=== PATIENT | female | born 1975 | race African-American/Black ===

== ENCOUNTER 2017-04-21 17:43 | Inpatient (IN) | payer OTHER ==
[~2017-04-21] VITALS: Ht 175.3 cm; Wt 104.3 kg
[2017-04-21 18:33] LABS: ABSOLUTE BASOPHIL COUNT 0 /CUMM (0.0-0.2); ABSOLUTE EOSINOPHIL COUNT 0.1 /CUMM (0.0-0.7); ABSOLUTE GRANULOCYTE CT 6.2 /CUMM (1.4-6.5); ABSOLUTE LYMPH COUNT 2.6 /CUMM (1.2-3.4); ABSOLUTE MONOCYTE COUNT 0.4 /CUMM (0.10-0.60); BASOPHIL % 0.4 % (0.0-2.0); EOSINOPHIL % 1.1 % (0-5); HEMATOCRIT 34.5 % (37-47); MEAN CORPUSCULAR HGB 26.8 PG (27.0-31.0); MEAN CORPUSCULAR HGB CONC 32.5 G/DL (33.0-37.0); MEAN CORPUSCULAR VOLUME 82.3 FL (81.0-99.0); MEAN PLATELET VOLUME 8.5 FL (7.4-10.4); PLATELET COUNT 325 /CUMM (130-400); RBC DISTRIBUTION WIDTH 20.9 % (11.5-14.5); RED BLOOD CELL CT 4.19 /CUMM (4.20-5.40); WHITE BLOOD CELL COUNT 9.4 /CUMM (4.8-10.8)
--- NOTE | 2017-04-21 18:39 | RADIOLOGY REPORT ---
EXAMINATION: XR CHEST CLINICAL INFORMATION: 42-year-old woman with shortness of breath. COMPARISON: None TECHNIQUE: 2 views of the chest were obtained. FINDINGS: The lungs are well expanded and clear, without evidence of focal airspace consolidation or pulmonary edema. Heart size is within the range of normal. There are no pleural effusions. IMPRESSION: No radiographic evidence of an acute cardiopulmonary process.
--- NOTE | 2017-04-21 21:12 | CT SCAN REPORT ---
EXAMINATION: CT ANGIOGRAM OF THE CHEST WITH AND WITHOUT CONTRAST (CT PULMONARY ANGIOGRAM FOR PE) CLINICAL INFORMATION: 42-year-old woman with shortness of breath. COMPARISON: 04/21/2017 chest radiograph TECHNIQUE: Prior to contrast administration, noncontrast localization images were obtained. Subsequently, multidetector volumetric imaging was performed from the thoracic inlet to below the diaphragms following the administration of 95 mL Optiray 350 intravenous contrast. No contrast reaction reported. Sagittal, coronal, and MIP oblique sagittal reformatted images were obtained on the CT workstation, uploaded to PACS, and reviewed. Total exam dose-length product 556 mGy-cm. FINDINGS: QUALITY OF STUDY/CONTRAST BOLUS: Moderate to poor PULMONARY ARTERIES: Extensive lobar, segmental, and subsegmental pulmonary emboli are seen on both sides extending into the right upper, middle, and lower lobes, as well as into the left upper and lower lobes. THORACIC AORTA: No aneurysm or dissection. LUNG: No focal consolidation, nodules or masses. PLEURA: No pleural effusion or pneumothorax. MEDIASTINUM: Normal heart size. No pericardial effusion. No hilar or mediastinal lymphadenopathy. No evidence of septal bowing or right heart strain. CHEST WALL/AXILLA: No axillary or internal mammary lymphadenopathy. OSSEOUS STRUCTURES: No acute or suspicious osseous abnormality. UPPER ABDOMEN: There is diffuse fatty infiltration of the liver. No reflux of contrast into the hepatic veins to suggest elevated right heart pressures. IMPRESSION: Extensive pulmonary emboli are seen throughout both lungs in lobar, segmental, and subsegmental pulmonary artery branches. Findings were discussed with Dr. Vásquez at 9:10 pm.
--- NOTE | 2017-04-21 21:22 | ED DYSPNEA/ASTHMA COMPLAINT ---
History of Present Illness General Chief Complaint: Dyspnea (COPD, CHF, Other) Stated Complaint: SOB Source: patient Exam Limitations: no limitations Vital Signs & Intake/Output Vital Signs & Intake/Output Vital Signs Date Time Temp Pulse Resp B/P B/P Pulse O2 O2 Flow FiO2 Mean Ox Delivery Rate 04/22 0415 98.5 81 18 137/65 98 Room Air 04/22 0052 72 18 131/64 97 Room Air 04/21 2144 98.0 87 20 158/91 98 Room Air 04/21 2142 98 Room Air 04/21 1758 98.8 86 18 150/98 98 Room Air ED Intake and Output 04/22 0000 04/21 1200 Intake Total Output Total Balance Patient 230 lb Weight Weight Reported by Patient Measurement Method Allergies Coded Allergies: No Known Allergies (04/21/17) Triage Note: 42 YO FEMALE TO [facility] FOR EVAL OF SOB. PT STATES SHE HAD A HYSTERECTOMY ON 04/01. STATES SHE FEELS OUT OF BREATH NOW. DENIES PAIN. RA SATS 98%. HR 86 Triage Nurses Notes Reviewed? yes Onset: Gradual Duration: week(s): (1), constant, continues in ED Timing: single episode today Severity: mild, moderate Activities at Onset: none Prior Episodes/Possible Cause: no prior episodes Modifying Factors: Improves With: rest. Worsens With: movement. LMP (ages 10-50): unknown : No Patient currently breastfeeds: No HPI: 42-year-old female with no past medical history presents for evaluation of shortness of breath. Patient states that symptoms started about one week ago and been persistent. Symptoms are worse on exertion and improved at rest but still are present at rest. She states that on April 01 of this year she had a total abdominal hysterectomy related to very large uterine fibroids. No history of cancer. No previous blood clots. No chest pain hemoptysis lower extremity edema. She does not take any medications. No recent travel. (Rolando Pandey) Past History Travel History Traveled to [place] past 21 day No Medical History Any Pertinent Medical History? see below for history Neurological: NONE EENT: NONE Cardiovascular: NONE Respiratory: NONE Gastrointestinal: NONE Hepatic: NONE Renal: NONE Musculoskeletal: NONE Psychiatric: NONE Endocrine: NONE Blood Disorders: NONE Cancer(s): NONE VESSEL ENGINEER/Reproductive: bacterial vaginitis Surgical History Surgical History: non-contributory Psychosocial History What is your primary language Rw[place]an Tobacco Use: Never used Family History Hx Contributory? No (Rolando Pandey) Review of Systems Review of Systems Constitutional: Reports: no symptoms. EENTM: Reports: no symptoms. Respiratory: Reports: see HPI, short of breath. Cardiovascular: Reports: no symptoms. GI: Reports: no symptoms. Genitourinary: Reports: no symptoms. Musculoskeletal: Reports: no symptoms. Skin: Reports: no symptoms. Neurological/Psychological: Reports: no symptoms. Hematologic/Endocrine: Reports: no symptoms. Immunologic/Allergic: Reports: no symptoms. All Other Systems: Reviewed and Negative (Rolando Pandey) Physical Exam Physical Exam General Appearance: well developed/nourished, no apparent distress, alert, awake , obese Head: atraumatic, normal appearance Eyes: Bilateral: normal appearance, PERRL, EOMI. Ears, Nose, Throat: normal pharynx, normal ENT inspection, hearing grossly normal Neck: normal inspection, supple, full range of motion Respiratory: normal breath sounds, chest non-tender, no respiratory distress, lungs clear Cardiovascular: regular rate/rhythm, normal peripheral pulses Peripheral Pulses: 2+ radial (R), 2+ radial (L) Gastrointestinal: normal bowel sounds, soft, non-tender, no organomegaly Extremities: normal inspection, normal capillary refill, normal range of motion, no edema Neurologic/Psych: no motor/sensory deficits, awake, alert, oriented x 3, normal gait Skin: intact, normal color, warm/dry Lymphatic: no anterior cervical radames Core Measures ACS in differential dx? No CVA/TIA Diagnosis No Sepsis Present: No Sepsis Focused Exam Completed? No (Rolando Pandey) Progress Differential Diagnosis: asthma, AMI, bronchitis, costochondritis, CHF, COPD, pulmonary embolism, pneumonia, pneumothorax, unstable angina Plan of Care: Orders Procedure Date/time Status Nothing by Mouth 04/22 B Active TROPONIN LEVEL 04/22 1300 Active EKG 04/22 1300 Active CBC WITHOUT DIFFERENTIAL 04/22 0600 Complete BASIC ELECTROLYTES PLUS BUN&CR 04/22 0408 Complete TROPONIN LEVEL 04/22 0400 Complete PARTIAL THROMBOPLASTIN TIME 04/22 0400 Complete EKG 04/22 0400 Active Weight 04/22 0213 Active Vital Signs 04/22 212 Active Teach/Educate 04/22 212 Active Pain Treatment and Response 04/22 212 Active Nutritional Intake, Monitor 03/06 0213 Active Isolation 04/22 212 Active Intake & Output 04/22 212 Active Patient Care Conference 04/22 212 Active Activity/Ambulation 04/22 212 Active Patient Data 04/21 232 Active Saline Lock 04/21 2232 Active Misc Message 04/21 2232 Active ED Holding Orders 04/21 2232 Active Admit to inpatient 04/21 2232 Active Code Status 04/21 2232 Active Pathway - chart 04/21 2226 Active Intake & Output 04/21 214 Active Telemetry/Plant Reliability Engineer 04/21 2128 Active Add-on Test (ER Only) 04/21 210 Active PARTIAL THROMBOPLASTIN TIME 04/21 1803 Complete PROTHROMBIN TIME 04/21 1803 Complete URINALYSIS 04/21 1800 Active TROPONIN LEVEL 04/21 1800 Complete D-DIMER 04/21 1800 Complete COMPREHENSIVE METABOLIC PANEL 04/21 1800 Complete CBC WITHOUT DIFFERENTIAL 04/21 1800 Complete EKG 04/21 1800 Active US-EXT BILAT VENOUS DOPPLER 04/21 UNK Active TRC EVALUATION (GEN) 04/21 UNK Active House Staff 04/21 UNK Active Vital Signs 04/21 UNK Active ECHOCARDIOGRAM 04/21 UNK Active Current Medications Sig/Cynthia Start time Last Medication Dose Stop Time Status Admin Tramadol HCl 50 MG Q8P PRN 04/21 2345 AC (Ultram) Acetaminophen 650 MG Q8P PRN 04/21 2245 AC (Tylenol) Heparin Sodium 25,000 UNIT Q24H 04/21 2130 AC 04/21 (Porcine) 2210 (Heparin) Sodium Chloride 500 ML Laboratory Tests 04/22/17 0408: Anion Gap 11, Estimated GFR > 60, BUN/Creatinine Ratio 28.3 H, Troponin I < 0.01, APTT 60 H, CBC w Diff NO MAN DIFF REQ, RBC 4.20, MCV 82.7, MCH 26.4 L, MCHC 31.9 L, RDW 20.9 H, MPV 8.7, Gran % 51.9, Lymphocytes % 40.3, Monocytes % 5.4, Eosinophils % 1.9, Basophils % 0.5, Absolute Granulocytes 4.5, Absolute Lymphocytes 3.5 H, Absolute Monocytes 0.5, Absolute Eosinophils 0.2, Absolute Basophils 0 04/21/17 1803: Anion Gap 14, Estimated GFR > 60, BUN/Creatinine Ratio 25.6 H, Glucose 128 H, Calcium 9.9, Total Bilirubin 0.2, AST 56 H, ALT 47, Alkaline Phosphatase 99, Troponin I < 0.01, Total Protein 7.5, Albumin 4.4, Globulin 3.1, Albumin/ Globulin Ratio 1.4, PT 10.0, INR 0.92, APTT 28, D-Dimer High Sensitivty 1909 H, CBC w Diff NO MAN DIFF REQ, RBC 4.19 L, MCV 82.3, MCH 26.8 L, MCHC 32.5 L, RDW 20.9 H, MPV 8.5, Gran % 66.0, Lymphocytes % 28.0, Monocytes % 4.5, Eosinophils % 1.1, Basophils % 0.4, Absolute Granulocytes 6.2, Absolute Lymphocytes 2.6, Absolute Monocytes 0.4, Absolute Eosinophils 0.1, Absolute Basophils 0 Patient seen and evaluated. She had a total abdominal hysterectomy done last month. Her d-dimer is 1900. Currently she is stable. She is not tachycardic or hypoxic. Lung sounds are clear. Patient is CTA to rule out PE. EKG troponin negative. CTA is positive for lobar segmental and subsegmental PEs. No signs of right heart strain. Rectal exam negative for blood patient was heparinized. She'll be admitted to the hospital for further evaluation and treatment of a provoked PE. She will require monitoring of vital signs, IV heparin, pulmonology consult , medication adjustment serial labs. Case discussed with Dr. Martinez he agrees. Diagnostic Imaging: Viewed by Me: CT Scan. Discussed w/RAD: CT Scan. Radiology Impression: PATIENT: RMEA BASHIR PRESENT AGE: 42 PATIENT ACCOUNT NO: [id number] : 75 LOCATION: [facility] ORDERING PHYSICIAN: Rolando CALVERT SERVICE DATE: 04/21/17 EXAM TYPE: CAT - CTA CHEST-PULMONARY EMBOLISM EXAMINATION: CT ANGIOGRAM OF THE CHEST WITH AND WITHOUT CONTRAST (CT PULMONARY ANGIOGRAM FOR PE) CLINICAL INFORMATION: 42-year- old woman with shortness of breath. COMPARISON: 04/21/2017 chest radiograph TECHNIQUE: Prior to contrast administration, noncontrast localization images were obtained. Subsequently, multidetector volumetric imaging was performed from the thoracic inlet to below the diaphragms following the administration of 95 mL Optiray 350 intravenous contrast. No contrast reaction reported. Sagittal, coronal, and MIP oblique sagittal reformatted images were obtained on the CT workstation, uploaded to PACS, and reviewed. Total exam dose-length product 556 mGy-cm. FINDINGS: QUALITY OF STUDY/CONTRAST BOLUS: Moderate to poor PULMONARY ARTERIES: Extensive lobar, segmental, and subsegmental pulmonary emboli are seen on both sides extending into the right upper, middle, and lower lobes, as well as into the left upper and lower lobes. THORACIC AORTA: No aneurysm or dissection. LUNG: No focal consolidation, nodules or masses. PLEURA: No pleural effusion or pneumothorax. MEDIASTINUM: Normal heart size. No pericardial effusion. No hilar or mediastinal lymphadenopathy. No evidence of septal bowing or right heart strain. CHEST WALL/AXILLA: No axillary or internal mammary lymphadenopathy. OSSEOUS STRUCTURES: No acute or suspicious osseous abnormality. UPPER ABDOMEN: There is diffuse fatty infiltration of the liver. No reflux of contrast into the hepatic veins to suggest elevated right heart pressures. IMPRESSION: Extensive pulmonary emboli are seen throughout both lungs in lobar, segmental, and subsegmental pulmonary artery branches. Findings were discussed with Dr. Vásquez at 9:10 pm. DICTATED BY: Kellie Grande MD DATE/TIME DICTATED:2099 COURTROOM CLERK:MILAGROS DATE/TIME TRANSCRIBED:04/21/172099 CONFIDENTIAL, DO NOT COPY WITHOUT APPROPRIATE AUTHORIZATION. <Electronically signed in Other Vendor System> SIGNED BY: Kellie Grande MD 04/21/172111 Initial ED EKG: normal sinus rhythm, no ST T wave changes (Rolando Pandey) Departure Departure Disposition: STILL A PATIENT Condition: Stable Clinical Impression Primary Impression: Pulmonary embolus Qualifiers: Pulmonary embolism type: other Chronicity: acute Acute cor pulmonale presence: without acute cor pulmonale Qualified Code: I26.99 - Other pulmonary embolism without acute cor pulmonale Referrals: Derian Guerra MD (PCP/Family) Departure Forms: Customer Survey General Discharge Information Admission Note Spoke With: Giacomo Hatfield MD Documentation of Exam: Documentation of any treatments & extenuating circumstances including Concerns Regarding Discharge (functional status, medication knowledge or non-compliance, living conditions, etc.) that warrant an admission rather than observation: [IV heparin, serial labs, pulmonology consult, medication adjustment] (Rolando Pandey) PA/TRACK GREASER Co-Sign Statement Statement: ED Attending supervision documentation- [x] I saw and evaluated the patient. I have also reviewed all the pertinent lab results and diagnostic results. I agree with the findings and the plan of care as documented in the PA's/TRACK GREASER's documentation. 04/21/17, 22:10... pt with bilateral pulmonary embolus after hysterectomy... pt merits iv heparin, and then conversion to oral anticoagulants. [] I have reviewed the ED Record and agree with the PA's/TRACK GREASER's documentation. [] Additions or exceptions (if any) to the PAs/TRACK GREASER's note and plan are summarized below: [] (Michelle SANZ,Jatinder Arreaga) Critical Care Note Critical Care Note Critical Care Time: non-applicable (Rolando Pandey)
[2017-04-21 21:32] LABS: PTT 28 SEC (25-37)
--- NOTE | 2017-04-21 22:20 | History & Physical ---
Brittany Sagastume 04/21/17 2219: General Information and HPI MD Statement: I have seen and personally examined REMA BROWN and documented this H&P. The patient is a 42 year old F who presented with a patient stated chief complaint of acute onset of dyspnea Source of Information: patient Exam Limitations: no limitations History of Present Illness: Ms Brown is a 42 year old woman with no significant PMHx came in w/ a chief concern of dyspnea that started approximately one week prior to the presentation. She recently underwent hysterectomy 04/01/17 at [facility] ( indication fibroids ) with no operative or post op complications. She was relatively immobile for a week after surgery, and started ambulating minimally once every few hours. She reported exertional dyspnea that was noticed while she was doing daily chores, that progressed to dyspena at rest. She also complained of pain in her lower extremities, located in the calf regions bilaterally in the last 1 week. Currently pain-free. No CP, palpitations, lightheadedness. No ocp use, no smoking h/o, or personal or family h.o of cancers. No fever, cough, flu like symptoms. Allergies/Medications Allergies: Coded Allergies: No Known Allergies (04/21/17) Home Med list Apixaban (Eliquis) 5 MG TABLET 10 MG PO BID Blood thinner Please take 10mg twice a day until 04/28. Then take 5mg twice a day Past History Travel History Traveled to [place] past 21 day No Medical History Neurological: NONE EENT: NONE Cardiovascular: NONE Respiratory: NONE Gastrointestinal: NONE Hepatic: NONE Renal: NONE Musculoskeletal: NONE Psychiatric: NONE Endocrine: NONE Blood Disorders: NONE Cancer(s): NONE SOFTWARE SUPPORT ANALYST/Reproductive: bacterial vaginitis Surgical History Surgical History: HYSTERECTOMY Past Family/Social History Family History Relations & Conditions if any MOTHER (diabetes, htn). Review of Systems Review of Systems Constitutional: Reports: see HPI. EENTM: Denies: visual changes. Cardiovascular: Denies: chest pain. Respiratory: Reports: orthopnea, short of breath. Denies: cough. GI: Reports: abdominal pain. Genitourinary: Denies: dysuria. Musculoskeletal: Denies: back pain. Skin: Denies: change in skin color. Neurological/Psychological: Denies: anxiety. Hematologic/Endocrine: Denies: bleeding. Exam & Diagnostic Data Last 24 Hrs of Vital Signs/I&O Vital Signs Date Time Temp Pulse Resp B/P B/P Pulse O2 O2 Flow FiO2 Mean Ox Delivery Rate 04/22 2143 98.0 87 20 158/91 98 Room Air 04/21 2141 98 Room Air 04/21 1758 98.8 86 18 150/98 98 Room Air Physical Exam General Appearance Alert, Oriented X3, Cooperative, No Acute Distress Skin No Rashes, incision on lower abd wall, healing wel. Sepsis Skin Exam (color): Normal for Ethnicity HEENT Atraumatic, PERRLA, EOMI Neck Supple, No JVD, No thryomegaly Lymphatic Cervical nl Cardiovascular Regular Rate, Normal S1, Normal S2 Lungs Normal Air Movement Abdomen Normal Bowel Sounds, Soft, No Tenderness Neurological Normal Speech, Strength at 5/5 X4 Ext, Normal Tone, Sensation Intact, Cranial Nerves 3-12 NL, Reflexes 2+ Extremities No Clubbing, No Cyanosis, Normal Pulses, No Tenderness/Swelling, TRACE PEDAL EDEMA Vascular Normal Pulses, Pulses Symmetrical Last 24 Hrs of Labs/Tao: Laboratory Tests 04/21/17 1803: Anion Gap 14, Estimated GFR > 60, BUN/Creatinine Ratio 25.6 H, Glucose 128 H, Calcium 9.9, Total Bilirubin 0.2, AST 56 H, ALT 47, Alkaline Phosphatase 99, Troponin I < 0.01, Total Protein 7.5, Albumin 4.4, Globulin 3.1, Albumin/ Globulin Ratio 1.4, PT 10.0, INR 0.92, APTT 28, D-Dimer High Sensitivty 1909 H, CBC w Diff NO MAN DIFF REQ, RBC 4.19 L, MCV 82.3, MCH 26.8 L, MCHC 32.5 L, RDW 20.9 H, MPV 8.5, Gran % 66.0, Lymphocytes % 28.0, Monocytes % 4.5, Eosinophils % 1.1, Basophils % 0.4, Absolute Granulocytes 6.2, Absolute Lymphocytes 2.6, Absolute Monocytes 0.4, Absolute Eosinophils 0.1, Absolute Basophils 0 Diagnostic Data EKG Results Normal sinus rhythm, normal axis, QTC 433, no ST-T wave changes noted. CXR Results No radiographic evidence of an acute cardiopulmonary process. Other Results CAT - CTA CHEST-PULMONARY EMBOLISM Extensive pulmonary emboli are seen throughout both lungs in lobar, segmental, and subsegmental pulmonary artery branches. Assessment/Plan Assessment: Ms Brown is a 42-year-old woman with no significant past medical history who underwent recent hysterectomy after which she had a brief phase of immobility that must have provoked the formation of a thrombus formation; it is unsure at this moment, if she had any DVT in her lower extremities that may have traveled up to the lungs. Vitals at the time of admission-temperature 98.8, pulse rate 86, respiration 18, blood pressure 150/98, pulse ox 98% on room air. Etiology in her case is likely due to immobility, leading to possible blood clots which would be a provoked PE. At this time, other genetic causes could be worked up as an outpatient after completing anticoagulation treatment. Problem list: 1. Pulmonary embolism 2. Status post hysterectomy Plan: 1. Pulmonary embolism- -Continue IV heparin -Would probably check genetic studies, factor V mutations at a later time. -Echocardiogram in a.m. - Serial echocardiograms and cardiac enzymes - Monitor vitals every 8 hourly. - Lower extremity Dopplers to rule out any DVT. - Could be changed to a DOAC in the am. 2. Status post hysterectomy - Does not seem to be infected - Pain control with Tylenol and opiates as needed. Housekeeping- DVT prophylaxis-IV heparin CODE STATUS-full Diet-heart healthy diet. As Ranked By This Provider Problem List: 1. Pulmonary embolus Qualifiers Pulmonary embolism type: other Chronicity: acute Acute cor pulmonale presence: without acute cor pulmonale Qualified Code: I26.99 - Other pulmonary embolism without acute cor pulmonale Core Measures/Misc (11/03) Acute Coronary Syndrome ACS Diagnosis: No Congestive Heart Failure Congestive Heart Failure Diagnosis No Cerebrovascular Accident CVA/TIA Diagnosis: No VTE (View Protocol) VTE Risk Factors Immobility No Mechanical VTE Prophylaxis d/t N/A MechProphylax Ordered No VTE Pharm Prophylaxis d/t NA PharmProphylax ordered Sepsis (View protocol) Sepsis Present: No Liu SANZ, [facility] 04/21/17 8652: Attending MD Review Statement Attending Statement Attending MD Statement: examined this patient, discuss w/resident/PA/ANIMAL SCIENCE PROFESSOR, agreed w/resident/PA/ANIMAL SCIENCE PROFESSOR, reviewed images, amended to note Attending Assessment/Plan: 42 yo obese F with h/o childhood asthma, recent ARAM for fibroids (Apr 01) at [facility], is here for evaluation of 5 day h/o exertional dyspnea that gradually progressed to dyspnea at rest. She was mostly bedbound for 1 week post surgery then started ambulating slowly. She denies chest pain, palpitations, lightheadedness. No LE edema. No cancer history. No personal or family h/o VTE. No recent travel/ long flights. She is not on hormonal pills. She has been evaluated by Cardiology 15 yrs ago for chest pain - work up negative. Vitals stable, not hypoxic. Exam as above. Labs: D-dimer 1909, BUN 23, glucose 128, trop neg. CXR: no acute process. CTA: extensive pulmonary emboli. EKG: sinus rhythm, no strain pattern. Assessment and plan: 1. Acute pulmonary embolism provoked 2. Recent surgery Total abdominal hysterectomy 3. Obesity - Admit to general medicine - Rule out ACS - Obtain echocardiogram - LE dopplers - IV heparin per PTT protocol (guaiac negative) - Change to NOAC - eliquis in AM - Outpatient follow up with Heme-Oncology - Pain management - Incision site looks clean - patient followed up with her surgeon. DVT ppx IV heparin. Full code.
--- NOTE | 2017-04-21 22:41 | Admission Certification ---
Admission Certification Certification Statement - As attending physician, I certify that at the time of - admission, based on clinical presentation, severity of - symptoms, need for further diagnostic testing and - therapeutic interventions, and risk of adverse outcomes - without in-hospital treatment, in my clinical assessment, - this patient requires an acute hospital stay for a minimum - of two nights or longer. I have also considered psychsocial - factors such as support system, advanced age, financial - issues, cognitive issues, and failed out-patient treatments, - past re-admission history, safety of patient, and lack of - compliance as applicable. Specific rationale supporting this admission is: Bilateral pulmonary embolism
[2017-04-22 04:29] LABS: ABSOLUTE BASOPHIL COUNT 0 /CUMM (0.0-0.2); ABSOLUTE EOSINOPHIL COUNT 0.2 /CUMM (0.0-0.7); ABSOLUTE GRANULOCYTE CT 4.5 /CUMM (1.4-6.5); ABSOLUTE LYMPH COUNT 3.5 /CUMM (1.2-3.4); ABSOLUTE MONOCYTE COUNT 0.5 /CUMM (0.10-0.60); BASOPHIL % 0.5 % (0.0-2.0); EOSINOPHIL % 1.9 % (0-5); GRANULOCYTE % 51.9 % (42.2-75.2); HEMATOCRIT 34.7 % (37-47); MEAN CORPUSCULAR HGB 26.4 PG (27.0-31.0); MEAN CORPUSCULAR HGB CONC 31.9 G/DL (33.0-37.0); MEAN CORPUSCULAR VOLUME 82.7 FL (81.0-99.0); MEAN PLATELET VOLUME 8.7 FL (7.4-10.4); PLATELET COUNT 302 /CUMM (130-400); RBC DISTRIBUTION WIDTH 20.9 % (11.5-14.5); WHITE BLOOD CELL COUNT 8.6 /CUMM (4.8-10.8)
[2017-04-22 04:42] LABS: PTT 60 SEC (25-37)
[2017-04-22 07:37] VITALS: BP 120/72
[2017-04-22 07:42] VITALS: BP 120/72
--- NOTE | 2017-04-22 08:18 | PN- Housestaff ---
See Addendum Subjective Follow-up For: PE Subjective: Admitted last night. She feels well this morning. Had recent surgery with Dr. Beard at [facility] for fibroids. Developed SOB about a week ago. She is no longer short of breath, no CP. Incision is mildly painful at times but otherwise no complaints. Review of Systems Constitutional: Reports: no symptoms. EENTM: Reports: no symptoms. Cardiovascular: Reports: no symptoms. Respiratory: Reports: no symptoms. Gastrointestinal: Reports: no symptoms. Genitourinary: Reports: no symptoms. Musculoskeletal: Reports: no symptoms. Skin: Reports: see HPI. Neurological/Psychological: Reports: no symptoms. Hematologic/Endocrine: Reports: no symptoms. Immunologic/Allergic: Reports: no symptoms. Objective Last 24 Hrs of Vital Signs/I&O Vital Signs Date Time Temp Pulse Resp B/P B/P Pulse O2 O2 Flow FiO2 Mean Ox Delivery Rate 04/22 0751 97.8 90 18 120/72 98 Room Air / 0742 97.8 90 18 120/72 98 Room Air 04/22 0739 78 03/ 0737 97.8 90 18 120/72 98 Room Air / 0415 98.5 81 18 137/65 98 Room Air 03/ 0052 72 18 131/64 97 Room Air / 2144 98.0 87 20 158/91 98 Room Air / 2142 98 Room Air 03/ 1758 98.8 86 18 150/98 98 Room Air Intake & Output 04/22 1600 /06 0800 03/ 0000 Intake Total 0 Output Total 2 Balance -2 Intake, Oral 0 Output, Urine 2 Patient 104.553 kg 104.326 kg Weight Weight Reported by Patient Measurement Method Physical Exam General Appearance: Alert, Oriented X3, Cooperative, No Acute Distress Cardiovascular: Regular Rate, Normal S1, Normal S2 Lungs: Clear to Auscultation Abdomen: Normal Bowel Sounds, Soft, No Tenderness, abd incision without erythema , drianage, or discharge Extremities: No Edema, Normal Pulses, No Tenderness/Swelling Current Medications: Current Medications Sig/Cynthia Start time Last Medication Dose Route Stop Time Status Admin Acetaminophen 975 MG Q8P PRN 04/22 0815 AC PO Acetaminophen 650 MG Q8P PRN 04/21 2245 DC PO Heparin Sodium 0 .STK-MED ONE 04/21 2205 DC (Porcine) .ROUTE Heparin Sodium 5,000 UNIT ONCE ONE 04/21 2129 DC 04/21 (Porcine) IV 04/21 2130 2210 Heparin Sodium 25,000 UNIT Q24H 04/21 2129 AC 04/21 (Porcine) IV 2210 Sodium Chloride 500 ML Ibuprofen 600 MG Q6P PRN 04/22 0815 AC PO Tramadol HCl 50 MG Q8P PRN 04/21 2345 DC PO Last 24 Hrs of Lab/Tao Results Last 24 Hrs of Labs/Mics: Laboratory Tests 04/22/17 0752: Urine Color Pending, Urine Clarity Pending, Urine pH Pending, Ur Specific [place] Pending, Urine Protein Pending, Urine Ketones Pending, Urine Nitrite Pending, Urine Bilirubin Pending, Urine Urobilinogen Pending, Ur Leukocyte Esterase Pending, Ur Microscopic SEDIMENT EXAMINED, Urine RBC Pending, Urine Hemoglobin Pending, Urine Glucose Pending 04/22/17 0600: Sodium Cancelled, Potassium Cancelled, Chloride Cancelled, Carbon Dioxide Cancelled, Anion Gap Cancelled, BUN Cancelled, Creatinine Cancelled, BUN/ Creatinine Ratio Cancelled 04/22/17 0408: Anion Gap 11, Estimated GFR > 60, BUN/Creatinine Ratio 28.3 H, Troponin I < 0.01, APTT 60 H, CBC w Diff NO MAN DIFF REQ, RBC 4.20, MCV 82.7, MCH 26.4 L, MCHC 31.9 L, RDW 20.9 H, MPV 8.7, Gran % 51.9, Lymphocytes % 40.3, Monocytes % 5.4, Eosinophils % 1.9, Basophils % 0.5, Absolute Granulocytes 4.5, Absolute Lymphocytes 3.5 H, Absolute Monocytes 0.5, Absolute Eosinophils 0.2, Absolute Basophils 0 04/21/17 1803: Anion Gap 14, Estimated GFR > 60, BUN/Creatinine Ratio 25.6 H, Glucose 128 H, Calcium 9.9, Total Bilirubin 0.2, AST 56 H, ALT 47, Alkaline Phosphatase 99, Troponin I < 0.01, Total Protein 7.5, Albumin 4.4, Globulin 3.1, Albumin/ Globulin Ratio 1.4, PT 10.0, INR 0.92, APTT 28, D-Dimer High Sensitivty 1909 H, CBC w Diff NO MAN DIFF REQ, RBC 4.19 L, MCV 82.3, MCH 26.8 L, MCHC 32.5 L, RDW 20.9 H, MPV 8.5, Gran % 66.0, Lymphocytes % 28.0, Monocytes % 4.5, Eosinophils % 1.1, Basophils % 0.4, Absolute Granulocytes 6.2, Absolute Lymphocytes 2.6, Absolute Monocytes 0.4, Absolute Eosinophils 0.1, Absolute Basophils 0 04/21/17 1800: Urine Color Cancelled, Urine Clarity Cancelled, Urine pH Cancelled, Ur Specific [place] Cancelled, Urine Protein Cancelled, Urine Ketones Cancelled, Urine Nitrite Cancelled, Urine Bilirubin Cancelled, Urine Urobilinogen Cancelled, Ur Leukocyte Esterase Cancelled, Ur Microscopic Cancelled, Urine Hemoglobin Cancelled, Urine Glucose Cancelled Assessment/Plan Assessment: Ms Brown is a 42-year-old woman with no significant past medical history who underwent recent hysterectomy who presented with shortness of breath. Problem list: 1. Pulmonary embolism - extensive throughout both lungs and lobar, segmental, and subsegmental pulmonary artery branches 2. Status post hysterectomy #Pulmonary embolism: Patient has remained hemodynamically stable and is not requiring oxygen. This is likely provoked by recent surgery. EKG and troponins 2 negative -Start apixiban 10 mg twice a day for 7 days, then 5 mg twice a day -Outpatient hematology workup -TTE #Status post hysterectomy: Does not seem to be infected -Pain control DVT prophylaxis with apixiban Regular diet Full code Problem List: 1. Pulmonary embolus Pain Ratin Pain Location: no Pain Goal: Remain pain free Pain Plan: see a/p Tomorrow's Labs & Rationales: no
--- NOTE | 2017-04-22 10:36 | ULTRASOUND REPORT ---
EXAMINATION: US TRIPLEX OF LOWER EXTREMITIES, BILATERAL CLINICAL INFORMATION: Pulmonary medicine. COMPARISON: None TECHNIQUE: Color-flow triplex imaging with spectral analysis and compression Doppler were performed on the lower extremities. FINDINGS: Respiratory variation, normal compression and augmented flow are noted throughout the lower extremities. The visualized common femoral vein, superficial femoral vein, profunda femoral vein, popliteal vein and midcalf peroneal and posterior tibial venous segments show no evidence of deep venous thrombosis. There is no Sandoval's cyst. IMPRESSION: Normal triplex scan without evidence of deep venous thrombosis involving the lower extremities.
[2017-04-22 10:48] VITALS: BP 122/68
[2017-04-22 15:13] VITALS: BP 118/78
[2017-04-22] MEDS ORDERED: ELIQUIS5 M1 PO ×2 (15:34→17:14)
--- NOTE | 2017-04-22 15:35 | Patient Discharge Instructions ---
Discharge Instructions General Discharge Information You were seen/treated for: Pulmonary embolism Watch for these problems: Fever, chest pain, shortness of breath Special Instructions: Please take all medications as directed. Please follow up with primary care and hematology. Diet Continue normal diet: Yes Activity Full Activity/No Limits: Yes Acute Coronary Syndrome Inclusion Criteria At DC or during hospital stay patient has or had the following: ACS DIAGNOSIS No Discharge Core Measures Meds if any: Prescribed or Continued at Discharge Meds if any: NOT Prescribed or Continued at Discharge Congestive Heart Failure Inclusion Criteria At DC or during hospital stay patient has or had the following: CHF DIAGNOSIS No Discharge Core Measures Meds if any: Prescribed or Continued at Discharge Meds if any: NOT Prescribed or Continued at Discharge Cerebrovascular accident Inclusion Criteria At DC or during hospital stay patient has or had the following: CVA/TIA Diagnosis No Discharge Core Measures Meds if any: Prescribed or Continued at Discharge Meds if any: NOT Prescribed or Continued at Discharge Venous thromboembolism Inclusion Criteria VTE Diagnosis Yes VTE Type Pulmonary Embolism VTE Confirmed by (Test) CT CHEST ANGIOGRAM Discharge Core Measures - Per Current guidelines, there needs to be overlap - treatment for the first 5 days of Warfarin therapy. - If discharged on Warfarin prior to 5 days of - overlap therapy, the patient will need to be - assessed for post discharge needs including - *Post discharge parental anticoagulation - *Warfarin and/or parental anticoagulation education - *Follow up date to check INR post discharge At least 5 days overlap therapy as Inpatient No Meds if any: Prescribed or Continued at Discharge Note: Overlap Therapy is Warfarin and Anticoagulant Meds if any: NOT Prescribed or Continued at Discharge
--- NOTE | 2017-04-23 06:42 | Discharge Summary ---
Visit Information Visit Dates Admission Date: 04/21/17 Discharge Date: 04/22/17 Hospital Course Course Attending Physician: Jordana Dickson MD Primary Care Physician: Derian Guerra MD Hospital Course: Ms Brown is a 42-year-old woman with no significant past medical history who underwent recent hysterectomy who presented with shortness of breath. Admission Data: Vitals stable, not hypoxic. Exam as above. Labs: D-dimer 1909, BUN 23, glucose 128, trop neg. CXR: no acute process. CTA: extensive pulmonary emboli. EKG: sinus rhythm, no strain pattern. She was admitted to general medicine and treated for the following problems: 1. Pulmonary embolism - extensive throughout both lungs and lobar, segmental, and subsegmental pulmonary artery branches 2. Status post hysterectomy #Pulmonary embolism: Patient presented with shortness of breath and was found to have bilateral pulmonary emboli on CTA. This was most likely provoked by her recent surgery. Patient remained hemodynamically stable and did not requiring oxygen. EKG and troponins 2 negative. She was initially started on IV heparin drip and then transitioned to oral apixiban. A TTE was performed. She should continue the apixiban 10 mg twice a day for 7 days, then 5 mg twice a day. She should also follow-up with hematology and primary care outpatient. #Status post hysterectomy: The wound was examined did not seem to be infected at the time. Her pain was adequately controlled. Allergies: Coded Allergies: No Known Allergies (04/21/17) Disposition Summary Disposition Principal Diagnosis: 1. Pulmonary embolism - extensive throughout both lungs and lobar, segmental, and subsegmental pulmonary artery branches Additional Diagnosis: 2. Status post hysterectomy Discharge Disposition: home or self care Discharge Instructions General Discharge Information Code Status: Full Code Patient's Diet: regular Patient's Activity: as tolerated Follow-Up Instructions/Appts: Please take all medications as directed. Please follow-up with primary care and hematology. Medications at Discharge Discharge Medications: Start taking the following new medications: Apixaban (Eliquis) 5 MG TABLET 10 Milligram ORAL TWICE DAILY Qty = 60 No Refills Instructions: Please take 10mg twice a day until 04/28. Then take 5mg twice a day Comments: Last Taken: 04/22/17 Time: 10:00 AM Copies To: Derian Guerra MD; Shaunna SANZ,James
--- NOTE | 2017-04-23 09:38 | ECHOCARDIOGRAM REPORT ---
REMA BASHIR Age: 42 : 1975 Gender: F Exam Date: 04/22/2017 16:46 Exam Location: [address] [place] [address] Ht (in): 69 Wt (lb): 230 BSA: 2.29 BP: 120 / 72 Ordering Physician: Brittany Sagastume MD Referring Physician: Brittany Sagastume MD Technologist: Angely Quick [facility] Room Number: 213 Indications: HEART FAILURE Rhythm: Sinus Technical Quality: Fair FINDINGS Left Ventricle Normal size left ventricle. Mild concentric left ventricular hypertrophy. No obvious regional wall motion abnormalities. Normal left ventricular ejection fraction visually estimated at >60%. Normal left ventricular diastolic filling pattern for age. Right Ventricle Normal right ventricular size and function. Right Atrium Normal right atrial size. Left Atrium Normal left atrial size. Mitral Valve Structurally normal mitral valve. Trace mitral regurgitation. Aortic Valve Structurally normal trileaflet aortic valve. No aortic valve stenosis or regurgitation. Tricuspid Valve Structurally normal tricuspid valve. Mild tricuspid regurgitation. No evidence of pulmonary hypertension. Right ventricular systolic pressure estimated to be within the normal range at 8 mmHg. Pulmonic Valve Pulmonic valve not well visualized, grossly normal. Trace pulmonic regurgitation. Pericardium No pericardial effusion. Great Vessels Normal size aortic root. CONCLUSIONS Normal size left ventricle. Mild concentric left ventricular hypertrophy. Normal left ventricular ejection fraction visually estimated at > 60%. Normal left ventricular diastolic filling pattern for age. Normal right ventricular size and function. Normal atrial size. Trace mitral regurgitation. Mild tricuspid regurgitation. No evidence of pulmonary hypertension. Trace pulmonic regurgitation. Fernandez Pool M.D. (Electronically Signed) Final Date: 23 April 2017 09:37 MEASUREMENTS (Male / Female) Normal Values 2D ECHO LV Diastolic Diameter PLAX 3.8 cm 4.2 - 5.9 / 3.9 - 5.3 cm LV Systolic Diameter PLAX 2.2 cm 2.1 - 4.0 cm LV Fractional Shortening PLAX 42.1 % 25 - 46 % LV Ejection Fraction 2D Teich 73.8 % IVS Diastolic Thickness 1.1 cm LVPW Diastolic Thickness 1.1 cm LV Relative Wall Thickness 0.6 RV Internal Dim ED PLAX 2.0 cm 1.9 - 3.8 cm LVOT Diameter 1.8 cm Aortic Root Diameter 2.4 cm LA Systolic Diameter LX 2.9 cm 3.0 - 4.0 / 2.7 - 3.8 cm LA Volume 31.0 cm 18 - 58 / 22 - 52 cm Ascending Aorta Diameter 2.8 cm DOPPLER AV Peak Velocity 131.0 cm/s AV Peak Gradient 6.9 mmHg AV Mean Velocity 89.2 cm/s AV Mean Gradient 4.0 mmHg AV Velocity Time Integral 21.6 cm LVOT Peak Velocity 101.0 cm/s LVOT Peak Gradient 4.1 mmHg LVOT Mean Velocity 61.4 cm/s LVOT Mean Gradient 2.0 mmHg LVOT Velocity Time Integral 17.7 cm LVOT Stroke Volume 45.0 cm AV Area Cont Eq vti 2.1 cm AV Area Cont Eq pk 2.0 cm MV Peak Velocity 76.0 cm/s MV Peak Gradient 2.3 mmHg MV Mean Velocity 49.7 cm/s MV Mean Gradient 1.0 mmHg Mitral E Point Velocity 76.0 cm/s Mitral A Point Velocity 61.2 cm/s Mitral E to A Ratio 1.2 MV PHT Velocity 75.6 cm/s MV Deceleration [place] 485.0 cm/s MV Pressure Half Time 46.8 ms MV Area PHT 4.7 cm MV Deceleration Time 100.0 ms TR Peak Velocity 89.5 cm/s TR Peak Gradient 3.2 mmHg Right Atrial Pressure 5.0 mmHg Pulmonary Artery Systolic Pressu 8.2 mmHg Right Ventricular Systolic Press 8.2 mmHg PV Peak Velocity 143.0 cm/s PV Peak Gradient 8.2 mmHg PV Mean Velocity 89.7 cm/s PV Mean Gradient 4.0 mmHg PV Velocity Time Integral 29.0 cm LV E' Lateral Velocity 11.1 cm/s Mitral E to LV E' Lateral Ratio 6.8 LV E' Septal Velocity 6.4 cm/s Mitral E to LV E' Septal Ratio 11.9
== END 2017-04-22 18:18 | DRG 176 ==
LOC: ERH 17:43 → ERHI 22:33 → ENRESERV 04-22 08:52 → ENTRNSPT 04-22 10:28 → EDTRNSPTSTS 04-22 10:31 → EDTRNSPT 04-22 10:31 → 2NB 04-22 10:38 → CMPTRNSPT 04-22 10:58 → 2NB 04-22 13:14
PROVIDERS: Internal Medicine Endocrinology, Diabetes & Metabolism; Physician Assistant Medical
DX: I26.99 Other pulmonary embolism without acute cor pulmonale (principal); E66.9 Obesity, unspecified; Z79.01 Long term (current) use of anticoagulants; Z90.710 Acquired absence of both cervix and uterus; Z68.33 Body mass index [BMI] 33.0-33.9, adult
CPT/HCPCS: ERO; 71046; 81001; 82436; 93005; 93010; 93306; 93970; 96374; 99291; J1644